=== PATIENT | male | born 1985 | race American Indian/Alaskan Native ===

== ENCOUNTER 2016-09-23 14:47 | Emergency (ER) | payer MEDICAID ==
[2016-09-23 15:02] VITALS: O2SAT 100
[2016-09-23 15:08] VITALS: BMI 17.8
--- NOTE | 2016-09-23 16:12 | C.PDOC ---
History Of Present Illness 31 year old patient, with a past medical history of seizures, presents to the ED complaining of injury to the left shoulder after a seizure last week. Patient reports he fell and sustained the injury. Pain is worse with movement. Patient took Advil which gave him mild relief. Patient denies fever, neck pain, shortness of breath, chest pain, back pain, numbness, weakness, or any other complaints at this time. Time Seen by Provider: 09/23/16 15:15 Chief Complaint (Nursing): Upper Extremity Problem/Injury History Per: Patient History/Exam Limitations: no limitations Onset/Duration Of Symptoms: Other (last week) Current Symptoms Are (Timing): Still Present Quality: "Pain" Severity: Moderate Pain Scale Rating Of: 4 Exacerbating Factor(s): Movement Recent travel outside of the [place]: No Past Medical History Reviewed: Historical Data, Nursing Documentation, Vital Signs Vital Signs: Last Vital Signs Temp 98.2 F 09/23/16 16:44 Pulse 75 09/23/16 16:44 Resp 16 09/23/16 16:44 BP 111/70 09/23/16 16:44 Pulse Ox 100 09/23/16 17:30 - Medical History PMH: Seizures Family History: States: Unknown Family Hx - Social History Hx Alcohol Use: No Hx Substance Use: No - Immunization History Hx Tetanus Toxoid Vaccination: No Hx Influenza Vaccination: No Hx Pneumococcal Vaccination: No Review Of Systems Except As Marked, All Systems Reviewed And Found Negative. Constitutional: Negative for: Fever Cardiovascular: Negative for: Chest Pain Respiratory: Negative for: Shortness of Breath Musculoskeletal: Positive for: Shoulder Pain (left). Negative for: Neck Pain, Back Pain Neurological: Negative for: Weakness, Numbness Physical Exam - Physical Exam Appears: Non-toxic, No Acute Distress Skin: Warm, Dry Head: Atraumatic, Normacephalic Eye(s): bilateral: Normal Inspection Nose: Normal Throat: Normal Neck: Normal ROM, Supple Chest: Symmetrical Cardiovascular: Rhythm Regular Respiratory: Normal Breath Sounds, No Rales, No Rhonchi, No Wheezing Back: Normal Inspection Extremity: Normal ROM, Capillary Refill (<2 seconds), No Deformity, No Swelling , Other (Left shoulder: tenderness to the anterior and lateral aspect of the shoulder; (-)deformity (-)swelling (+)normal ROM (+)pain with abduction of shoulder) Neurological/Psych: Oriented x3, Normal Speech Gait: Steady ED Course And Treatment O2 Sat by Pulse Oximetry: 100 (RA) Pulse Ox Interpretation: Normal - Other Rad left shoulder x-ray X-Ray: Read By Radiologist (Liz Baker) Interpretation: PROCEDURE: Radiographs of the Left Shoulder. HISTORY: pain s.p fall one week ago. COMPARISON: No prior. FINDINGS: BONES: There is a deformity in the distal clavicle. Bone mineralization is normal. JOINTS: Normal. Glenohumeral and acromioclavicular joints preserved. No osteoarthritis. SOFT TISSUES: Normal. OTHER FINDINGS: None. IMPRESSION: Deformity in the distal clavicle could represent an impacted fracture. Dedicated clavicle radiographs would be helpful for further evaluation. Medical Decision Making Medical Decision Making: Impression: 31 year old male with left shoulder injury s/p seizure 1 week ago Plan: * Left shoulder x-ray Progress: Xray shows distal clavicle fracture. Explain results to patient and arm sling applied. Recommend motrin for pain and to follow up with ortho Disposition Counseled Patient/Family Regarding: Need For Followup, Rx Given - Disposition Referrals: Robert Mcclure DO [Primary Care Provider] - Lacie Joshi MD [Staff Provider] - Disposition: HOME/ ROUTINE Disposition Time: 16:24 Condition: STABLE Additional Instructions: Your prescription was sent to [facility] pharmacy Your xray shows a distal clavicle fracture. Take motrin as needed for pain Wear sling for 2-3 weeks. It is very important you follow up with orthopedic Prescriptions: Ibuprofen [Motrin] 600 mg PO Q8 #30 tab Instructions: Clavicle Fracture (ED) - POA Present On Arrival: None - Clinical Impression Clinical Impression: Clavicle fracture - PA / DRAG SAWYER / Resident Statement AGUSTÍN has reviewed & agrees with the documentation as recorded. - Scribe Statement The provider has reviewed the documentation as recorded by the Scribe Essie Mccullough All medical record entries made by the Scribe were at my direction and personally dictated by me. I have reviewed the chart and agree that the record accurately reflects my personal performance of the history, physical exam, medical decision making, and the department course for this patient. I have also personally directed, reviewed, and agree with the discharge instructions and disposition.
--- NOTE | 2016-09-23 16:21 | RAD ---
PROCEDURE: Radiographs of the Left Shoulder HISTORY: pain s.p fall one week ago COMPARISON: No prior. FINDINGS: BONES: There is a deformity in the distal clavicle. Bone mineralization is normal. JOINTS: Normal. Glenohumeral and acromioclavicular joints preserved. No osteoarthritis. SOFT TISSUES: Normal. OTHER FINDINGS: None. IMPRESSION: Deformity in the distal clavicle could represent an impacted fracture. Dedicated clavicle radiographs would be helpful for further evaluation.
[2016-09-23 16:44] VITALS: BP 111/70; PULSE 75; RESP 16; TEMP 98.2
== END 2016-09-23 16:43 | disposition home or self-care (01) ==
LOC: SUPCPDRO 14:47 → C.ER 14:47
DX: S42.032A Displaced fracture of lateral end of left clavicle, initial encounter for closed fracture (principal); W19.XXXA Unspecified fall, initial encounter; Y93.9 Activity, unspecified; Y92.9 Unspecified place or not applicable

== ENCOUNTER 2016-12-26 12:22 | Emergency (ER) | payer MEDICAID ==
[2016-12-26 12:23] VITALS: BMI 17.8
[2016-12-26 12:42] VITALS: BP 102/65; PULSE 79; RESP 18; TEMP 98.1; O2SAT 100
[2016-12-26] MEDS ORDERED: Bacitracin Opht OINT 3.5GM OD STA ×2 (13:36→13:44)
--- NOTE | 2016-12-26 13:41 | C.PDOC ---
History Of Present Illness 31 y/o male presents to ED with complaints of pain and swelling to right eye. Pt states 3 days ago he smashed a large cockroach on his desk and the guts splattered into his eye. The next day, he woke up with discharge in his eye and a scratchy sensation at that time removing his lenses. He rinsed the eye and replaced lenses. Today woke up with swollen eyelid so he removed the lenses again. Denies fever, chills, visual changes or any other complaints. Time Seen by Provider: 12/26/16 13:26 Chief Complaint (Nursing): Eye Problem History Per: Patient History/Exam Limitations: no limitations Onset/Duration Of Symptoms: Days Current Symptoms Are (Timing): Still Present Injury To Eye?: No Severity: Moderate Wears Contact Lens?: Yes Associated Symptoms: Pain, Discharge From Eye. denies: Decreased Vision Recent travel outside of the [place]: No Past Medical History Reviewed: Historical Data, Nursing Documentation, Vital Signs Vital Signs: Last Vital Signs Temp 98.1 F 12/26/16 12:37 Pulse 79 12/26/16 12:37 Resp 18 12/26/16 12:37 BP 102/65 12/26/16 12:37 Pulse Ox 100 12/26/16 13:41 - Medical History PMH: Seizures Family History: States: Unknown Family Hx - Social History Hx Alcohol Use: Yes Hx Substance Use: No - Immunization History Hx Tetanus Toxoid Vaccination: No Hx Influenza Vaccination: No Hx Pneumococcal Vaccination: No Review Of Systems Except As Marked, All Systems Reviewed And Found Negative. Constitutional: Negative for: Fever, Chills Eyes: Positive for: Pain (right eye pain, discharge and eyelid swelling). Negative for: Vision Change Physical Exam - Physical Exam Appears: Non-toxic, No Acute Distress Skin: Warm, Dry, No Rash Head: Atraumatic, Normacephalic Eye(s): right: Other (Mild injected conjunctiva, upper lid swelling), left: Normal Inspection Neurological/Psych: Oriented x3, Normal Speech, Normal Cognition ED Course And Treatment O2 Sat by Pulse Oximetry: 100 (room air) Pulse Ox Interpretation: Normal Disposition Counseled Patient/Family Regarding: Diagnosis, Need For Followup, Rx Given - Disposition Disposition: HOME/ ROUTINE Disposition Time: 13:38 Condition: STABLE Prescriptions: Bacitracin/Neomycin/Polymyxin [Bacitracin/Neomycin/Polymyxin OPHT OINT] 1 applic OD TID #1 tube Instructions: Conjunctivitis (ED) Forms: General Discharge Instructions - POA Present On Arrival: None - Clinical Impression Clinical Impression: Pain in eye, Conjunctivitis - Scribe Statement The provider has reviewed the documentation as recorded by the Scribe Gonzales Ramachandran Provider Attestation: All medical record entries made by the Scribe were at my direction and personally dictated by me. I have reviewed the chart and agree that the record accurately reflects my personal performance of the history, physical exam, medical decision making, and the department course for this patient. I have also personally directed, reviewed, and agree with the discharge instructions and disposition.
== END 2016-12-26 13:51 | disposition home or self-care (01) ==
LOC: C.ER 12:22
DX: H10.9 Unspecified conjunctivitis (principal); H57.11 Ocular pain, right eye